=== PATIENT | female | born 1990 | race Caucasian/White ===

== ENCOUNTER 2017-02-09 17:21 | Emergency (ER) | payer OTHER ==
[~2017-02-09] VITALS: Ht 157.5 cm; Wt 76.8 kg
[~2017-02-09 17:21] MED LIST: ADVAIR HFA120 INHALA IH; AUGMENTIN875 MG PO; BENADRYL25 MG PO; BENZONATATE100 MG PO; CLARITIN10 M3 PO; ENDOCET 5-3251 EACH PO; FLEXERIL10 MG PO; FLEXERIL5 MG PO; FLORASTOR250 MG PO; IBUPROFEN800 MG PO; LEVOFLOXACIN750 MG PO; MEDROL DOSEPAK4 MG PO; MOTRIN800 MG PO; NAPROSYN500 MG PO; NO HOME MEDS; NUVARING VAGIN1 EACH VG; PAIN RELIEVER500 MG PO; PERCOCET 5/31 TABLET PO; PREDNISONE10 MG PO; PRENATAL VITAM1 EAC3 PO; VENTOLIN HFA18 GM IH
[2017-02-09 18:23] VITALS: BP 113/74
== END 2017-02-09 18:52 | disposition home or self-care (01) ==
LOC: EME 17:21
DX: S06.0X0A Concussion without loss of consciousness, initial encounter (principal); T74.11XA Adult physical abuse, confirmed, initial encounter; E07.9 Disorder of thyroid, unspecified; E55.9 Vitamin D deficiency, unspecified; J30.9 Allergic rhinitis, unspecified; D64.9 Anemia, unspecified; Z91.013 Allergy to seafood; Z91.041 Radiographic dye allergy status; Z91.09 Other allergy status, other than to drugs and biological substances
CPT/HCPCS: 99281; 99283